=== PATIENT | male | born 1950 | race Caucasian/White ===

== ENCOUNTER → 2021-03-26 | Outpatient (CLI) | payer MEDICARE, OTHER | LOC: ORTHO 13:00 | PROVIDERS: ATTEND Orthopaedic Surgery | DX: M17.0 Bilateral primary osteoarthritis of knee (principal) ==

== ENCOUNTER → 2021-06-25 | Outpatient (CLI) | payer MEDICARE, OTHER ==
[~2021-06-25] MED LIST: BUDE10.2 IH; BUDE180A IH; CELE200C PO; CETI10TA17 PO; CHOL200059 PO; LISI10TA25 PO; MONT-40 PO; OMAL150S SQ; PSEU120T17 PO; ROSU10TA28 PO; RT-ALBUINH INH
--- NOTE | 2021-06-25 12:22 | Diagnostic Imaging Report ---
INDICATION: Degenerative joint disease of the right knee, preop. EXAMINATION: PA and lateral chest. FINDINGS: There are postop changes of the dorsal fusion of T12-L1. There are old healed rib fractures of the right lateral thoracic cage. Heart size and pulmonary vascularity are normal. Lungs are clear. There are no effusions or pneumothoraces. IMPRESSION: No acute abnormalities in the chest. Dictated by: Dictated on workstation # [id number]
--- NOTE | 2021-06-25 12:50 | Diagnostic Imaging Report ---
INDICATION: Right knee pain. AP, lateral, and oblique and sunrise views of the right knee are obtained. FINDINGS: There is advanced degenerative change of the medial compartment of the right knee with osteophyte formation and severe joint space narrowing and subchondral sclerosis. Lateral compartment appears preserved. There is mild patellofemoral spurring. There is no lytic or blastic lesion. IMPRESSION: Degenerative findings in the right knee, most severe in the medial compartment. No acute appearing abnormality. Dictated by: Dictated on workstation # [id number]
== END ==
LOC: ORTHO 08:53
PROVIDERS: ATTEND Orthopaedic Surgery
DX: Z01.818 Encounter for other preprocedural examination (principal); M17.11 Unilateral primary osteoarthritis, right knee
CPT/HCPCS: 71046; 73564

== ENCOUNTER → 2021-06-25 | Outpatient (CLI) | payer MEDICARE, OTHER ==
[2021-06-25 11:05] LABS: BASOPHILS # (AUTO) 0.1 10^3/uL (0.0-0.1); BASOPHILS % (AUTO) 1 % (0-10); EOSINOPHILS # (AUTO) 0.5 10^3/uL (0.0-0.3); EOSINOPHILS % (AUTO) 6 % (0-10); HEMATOCRIT 45 % (40-54); HEMOGLOBIN 14.8 g/dL (13.3-17.7); LYMPHOCYTES # (AUTO) 1.6 10^3/uL (1.0-4.0); LYMPHOCYTES % (AUTO) 20 % (12-44); MEAN CORPUSCULAR HEMOGLOBIN 31 pg (25-34); MEAN CORPUSCULAR HGB CONC 33 g/dL (32-36); MEAN CORPUSCULAR VOLUME 93 fL (80-99); MEAN PLATELET VOLUME 8.8 fL (9.0-12.2); MONOCYTES # (AUTO) 1.1 10^3/uL (0.0-1.0); MONOCYTES % (AUTO) 15 % (0-12); NEUTROPHILS # (AUTO) 4.5 10^3/uL (1.8-7.8); NEUTROPHILS % (AUTO) 58 % (42-75); PLATELET COUNT 243 10^3/uL (130-400); WHITE BLOOD COUNT 7.8 10^3/uL (4.3-11.0)
[2021-06-25 11:31] LABS: CALCIUM 9.7 MG/DL (8.5-10.1); CREATININE SERUM 0.78 MG/DL (0.60-1.30); POTASSIUM 4.2 MMOL/L (3.6-5.0)
[2021-06-25 11:42] LABS: INR 0.9 (0.8-1.4); PROTHROMBIN TIME PATIENT 12.4 SEC (12.2-14.7)
[2021-06-25 12:01] LABS: BILIRUBIN,URINE NEGATIVE (NEGATIVE); CLARITY,URINE CLEAR; COLOR,URINE YELLOW; GLUCOSE, URINE (UA) NEGATIVE (NEGATIVE); KETONES,URINE NEGATIVE (NEGATIVE); LEUKOCYTE ESTERASE ,URINE NEGATIVE (NEGATIVE); NITRITE,URINE NEGATIVE (NEGATIVE); PH,URINE 5.5 (5-9); PROTEIN,URINE NEGATIVE (NEGATIVE)
[2021-06-25 12:05] LABS: BACTERIA,URINE NEGATIVE /HPF
== END ==
LOC: CARD 10:40
PROVIDERS: ATTEND Orthopaedic Surgery
DX: Z01.89 Encounter for other specified special examinations (principal)
CPT/HCPCS: 36415; 80048; 81000; 85025; 85610; 93005

== ENCOUNTER 2021-07-01 09:41 | Outpatient (CLI) | payer MEDICARE, OTHER ==
[~2021-07-01] VITALS: Ht 170.2 cm; Wt 95.7 kg
[2021-07-01 09:45] VITALS: BP 157/83
[2021-07-01] MEDS ORDERED: PSEU120T17 PO (10:46)
[2021-07-01] MEDS ORDERED: CETI10TA17 PO (10:46)
[2021-07-01] MEDS ORDERED: CELE200C PO (10:46)
[2021-07-01] MEDS ORDERED: MONT-40 PO (10:46)
[2021-07-01] MEDS ORDERED: ROSU10TA28 PO (10:46)
[2021-07-01] MEDS ORDERED: LISI10TA25 PO (10:46)
[2021-07-01] MEDS ORDERED: BUDE10.2 IH (10:46)
[2021-07-01] MEDS ORDERED: BUDE180A IH (10:46)
[2021-07-01] MEDS ORDERED: CHOL200059 PO (10:46)
[2021-07-01] MEDS ORDERED: RT-ALBUINH INH (10:46)
[2021-07-01] MEDS ORDERED: OMAL150S SQ (10:46)
== END 2021-07-01 10:59 | disposition home or self-care (01) ==
LOC: PREOP 09:41
PROVIDERS: ATTEND Orthopaedic Surgery
DX: Z01.818 Encounter for other preprocedural examination (principal)
CPT/HCPCS: 87081

== ENCOUNTER 2021-07-08 06:22 | Inpatient (IN) | payer MEDICARE, OTHER ==
[~2021-07-08] VITALS: Ht 170 cm; Wt 95.7 kg
[2021-07-08] VITALS (11 sets, daily range): BP systolic 99–172; BP diastolic 61–94
[2021-07-08] MEDS ORDERED: fentaNYL INJ 100 MCG/2 ML AMP ONE (06:55)
[2021-07-08] MEDS ORDERED: MIDAZOLAM 2 MG/2 ML (VERSED) VIAL ONE (06:55)
[2021-07-08] MEDS ORDERED: LIDOCAINE PF 2% 5 ML (XYLOCAINE) VIAL ONE ×2 (06:56→08:43)
[2021-07-08] MEDS ORDERED: ROPIVACAINE 5MG/ML 30ML VIAL ONE (06:56)
[2021-07-08] MEDS ORDERED: ceFAZolin 2 GM IV Premixed 50 ML IV NR (07:00)
--- NOTE | 2021-07-08 07:17 | Progress Note-Pre Operative ---
Pre-Operative Progress Note H&P Reviewed The H&P was reviewed, patient examined and no changes noted. Date Seen by Provider: Jul 08, 2021 Time Seen by Provider: 07:15 Date H&P Reviewed: Jul 08, 2021 Time H&P Reviewed: 07:15 Pre-Operative Diagnosis: Right Knee Primary Osteoarthritis LOPEZ BUSH MD Jul 08, 2021 07:17
[2021-07-08] MEDS: LACTATED RINGERS 1,000 ML IV PRN ×4 (07:23→15:24)
[2021-07-08] MEDS ORDERED: SODIUM CHLORIDE 0.9% IRRIGATIO 150 ML, TRANEXAMIC ACID INJECTION 3,000 MG IR ONE ×2 (08:30)
[2021-07-08] MEDS ORDERED: SEVOFLURANE (ULTANE) 15 ML INHAL SOLN ONE (08:42)
[2021-07-08] MEDS ORDERED: ROCURONIUM 10 MG/ML 5 ML SYRINGE IV ONE (08:42)
[2021-07-08] MEDS ORDERED: proPOfol 200 MG/20 ML (DIPRIVAN) VIAL IV ONE (08:42)
[2021-07-08] MEDS ORDERED: ONDANSETRON 4 MG/2 ML (SDV) Z0FRAN ONE (08:43)
[2021-07-08] MEDS ORDERED: morphine INJ 10 MG/ML 1ML (SYR OR VIAL) ONE ×2 (09:39→10:48)
--- NOTE | 2021-07-08 10:42 | Operative Report - Ortho ---
Operative Report Surgeon (s)/[employer] (s) Surgeon LOPEZ BUSH MD [employer] n/a Pre-Operative Diagnosis Right Knee Primary Osteoarthritis Post-Operative Diagnosis same Operative Report Date of Procedure: Jul 08, 2021 Name of Procedure Performed: Right Total Knee Arthroplasty Description & Findings After obtaining informed consent and marking the patient in the preoperative holding area, the patient did receive IV antibiotics. Patient was taken to the operating room and anesthesia was induced. Surgical timeout was taken. The right lower extremity was prepped and draped in the usual sterile fashion. Incision was made and carried down to fascia. Arthrotomy was performed on the medial side of the patella. Patella was retracted laterally and knee was flexed. Found to have circumferential osteophtye around the distal femur as well as exposed bone in the medial compartment. Hole was made in the distal femur for the intramedullary distal femoral cutting guide. Resection was made then the femur was sized as a 6. 4-in-1 block for a size [address]. Anterior cut was made and there was no notch. Posterior cut was made followed by the chamfers. Box cut was performed. Lug holes were drilled. Attention was turned to the tibial side, extramedullary tibial guide was put into place and aligned with the tibial crest. It was set to take 2 mm off of the affected medial side. Drop jon was used to confirm alignment. Resection was made and was parallel to the joint line. Tibial bone block was removed. Lamina blade balancer was put into place and the menisci and posterior osteophytes were removed. The knee was trialed with a size 6 femur and a size 6 tibia with a 9 mm poly trial. It was found to come out to full extension and flexed beyond 120 degrees. It was stable to varus and valgus stress throughout its range of motion. It was noted that the size 6 did have medial overhang and it was decided to size down to a 5. This was accepted. Knee was brought out into extension and the patella was prepared for an inset patellar button. Patellar trial was placed and this tracked well through the groove of the trial femur. Trial implants were removed. Tibial trial was pinned and punched. The cut bone surfaces were lavaged with pulsatile normal saline. Implants were opened and assembled on the back table. Cement was mixed. Cement was applied to the cut bone surface as well as the implant surface. A size 5 tibial component was impacted into placed and excess cement was removed using a [place]. A size 6 femoral component was impacted into place and excess cement was removed using a [place]. Tibial tray was lavaged with saline. A 9 mm thick polyethylene component was locked into placed and the locking mechanism was checked. Knee was brought into extension. Patellar surface was irrigated, dried, and then cement was applied. Patellar component was clamped into place and excess cement was removed using the [place]. The knee was irrigated with normal saline. Irrigation was removed and tranexamic acid was placed. Once the cement had set, the knee was once again trialed; found to come to full extension, flexed beyond 120 degrees, and was stable to varus and valgus stress. Further tranexamic acid was applied for hemostasis. Tourniquet was dropped and electrocautery was used for further hemostasis. Fascial layer was closed with # 1 Ethibond. The subcutaneous layer was closed with 2-0 Vicryl. The skin was closed with a running subcuticular 3-0 V-loc. Wound was dressed with mastisol, steri-strips, xeroform, 4x4s, ABD, webril, and ANNMARIE wrap. Patient tolerated the procedure well and was stable to the recovery room. Anesthesia Type General plus regional Estimated Blood Loss 150 mL Specimen(s) collected/removed none LOPEZ BUSH MD Jul 08, 2021 10:42
[2021-07-08] MEDS ORDERED: BISACODYL 5 MG (DULCOLAX) TABLET PO PRN (10:45)
[2021-07-08] MEDS ORDERED: morphine INJ 4 MG/ML 1 ML (VIAL/SYRINGE) IVP PRN (10:45)
[2021-07-08] MEDS ORDERED: ACETAMINOPHEN 500 MG TAB (TYLENOL) PO PRN (10:45)
[2021-07-08] MEDS ORDERED: ONDANSETRON 4 MG/2 ML (SDV) Z0FRAN IVP PRN (10:45)
[2021-07-08] MEDS ORDERED: morphine INJ 10 MG/ML 1ML (SYR OR VIAL) IVP ONE (10:45)
[2021-07-08] MEDS ORDERED: ONDANSETRON 4 MG/2 ML (SDV) Z0FRAN IV PRN (10:45)
[2021-07-08] MEDS ORDERED: MEPERIDINE (DEMEROL) INJ 50 MG/ML IVP ONE (10:45)
[2021-07-08] MEDS ORDERED: MILK OF MAGNESIA 400 MG/5 ML 30 ML UDC PO PRN (10:45)
[2021-07-08] MEDS ORDERED: fentaNYL INJ 100 MCG/2 ML AMP IVP ONE (10:45)
--- NOTE | 2021-07-08 12:06 | Diagnostic Imaging Report ---
INDICATION: Right knee replacement surgery. TIME OF EXAM: 10:59 AM 2 views of the right knee demonstrate postoperative changes of total knee arthroplasty. Prosthetic elements are in good position. No fracture or loosening is identified. IMPRESSION: Satisfactory postop appearance to the right knee. Dictated by: Dictated on workstation # [id number]
--- NOTE | 2021-07-08 14:13 | Physical Therapy Evaluation ---
PT Evaluation-General Medical Diagnosis Admission Date Jul 08, 2021 at 06:22 Medical Diagnosis: right TKR Onset Date: Jul 08, 2021 Therapy Diagnosis Therapy Diagnosis: debility/weakness Weight Bear Status Right Lower Extremity: Right Weight Bearing/Tolerated Left Lower Extremity: Left Full Weight Bearing Referral Physician: Kareem Reason for Referral: Evaluation/Treatment Medical History Additional Medical History Covid (+) Current History s/p elective right TKR Reviewed History: Yes Social History Home: Single Level Prior Prior Level of Function SCALE: Activities may be completed with or without assistive devices. 8-Cfpknqdgys-vjclfnr completes the activity by him/herself with no assistance from a helper. 5-Set-up or Clean-up Assistance-helper sets up or cleans up; patient completes activity. [place] assists only prior to or following the activity. 4-Supervision or Touching Assistance-helper provides verbal cues and/or touching/steadying and/or contact guard assistance as patient completes activity . Assistance may be provided throughout the activity or intermittently. 3-Partial/Moderate Assistance-helper does LESS THAN HALF the effort. [place] lifts, holds or supports trunk or limbs, but provides less than half the effort. 2-Substantial/Maximal Assistance-helper does MORE THAN HALF the effort. [place] lifts or holds trunk or limbs and provides more than half the effort. 8-Mwymqfqee-tuetvv does ALL the effort. Patient does none of the effort to complete the activity. Or, the assistance of 2 or more helpers is required for the patient to complete the activity. If activity was not attempted, code reason: 7-Patient Refused. 9-Not Applicable-not attempted and the patient did not perform the activity before the current illness, exacerbation or injury. 10-Not Attempted due to Environmental Limitations-(lack of equipment, weather restraints, etc.). 88-Not Attempted due to Medical Conditions or Safety Concerns. Bed Mobility: 6 Transfers (B,C,W/C): 6 Gait: 6 Stairs: 6 Indoor Mobility (Ambulation): Independent Stairs: Independent Prior Devices Use: None PT Evaluation-Current Subjective Patient agrees for PT to place CPM on right LE 0-50 degrees. Objective Patient Orientation: Normal For Age Attachments: Oxygen ROM/Strength ROM Lower Extremities right knee CPM 0-50 degrees Sensory Vision: Wears Glasses Hearing: Functional Treatment CPM 0-50 degrees right LE Assessment/Needs Eval in progress. CPM in place right LE. PT to complete evaluation in a.m. Rehab Potential: Fair PT Care Home Goals Research Professional Goals PT Care Home Goals Time Frame: Jul 20, 2021 Roll Left & Right (QC): 6 Sit to Lying (QC): 6 Lying-Sitting on Side/Bed(QC): 6 Sit to Stand (QC): 6 Chair/Yeo-xh-Avggb Xfer(QC): 6 Toilet Transfer (QC): 6 Walk 10 feet (QC): 6 Walk 50ft with 2 Turns (QC): 6 Walk 150 ft (QC): 6 PT Plan Problem List Problem List: Activity Tolerance, Functional Strength, Balance, Gait, Transfer, Bed Mobility, ROM Treatment/Plan Treatment Plan: Continue Plan of Care Treatment Plan: Bed Mobility, Education, Functional Activity Dennis, Functional Strength, Gait, Safety, Therapeutic Exercise, Transfers Treatment Duration: Jul 20, 2021 Frequency: 11 times per week Estimated Hrs Per Day: .5 hour per day Patient and/or Family Agrees t: Yes Time/GCodes Time In: 1330 Time Out: 1340 Total Billed Treatment Time: 10 Total Billed Treatment 1 visit CPM/PADS 10min THELMA WOLFE PT Jul 08, 2021 14:13
[2021-07-08] MEDS: ceFAZolin 2 GM IV Premixed 50 ML IV SCH (15:24)
[2021-07-08] MEDS ORDERED: PSEUDOEPHEDRINE HCL 30 MG (SUDAFED) TAB PO SCH (17:00)
[2021-07-08] MEDS: ASPIRIN E.C. 81 MG (ECOTRIN) TAB PO SCH (18:27)
[2021-07-08] MEDS: PSEUDOEPHEDRINE HCL 30 MG (SUDAFED) TAB PO SCH (18:27)
[2021-07-08] MEDS: FLUTICASONE 200 MCG IH SCH (18:56)
[2021-07-08] MEDS: RT--FLUTICASONE/SALMETEROL 232-14 (AIRDUO RespiCLICK) IH SCH (18:57)
[2021-07-08] MEDS: ROSUVASTATIN 10 MG (CRESTOR) TABLET PO SCH (20:32)
[2021-07-08] MEDS: lisINopril 10 MG (PRINIVIL) TABLET PO SCH (20:32)
[2021-07-08] MEDS: MONTELUKAST 10 MG (SINGULAIR) TAB PO SCH (20:32)
[2021-07-08] MEDS: DOCUSATE SODIUM 100 MG (COLACE) CAP PO SCH (20:32)
[2021-07-08] MEDS ORDERED: PSEUDOEPHEDRINE HCL 120 MG PO SCH (21:00)
[2021-07-08] MEDS ORDERED: NON-FORMULARY MEDICATION 1 EA EA (Budesonide/Formoterol Fumarate (Symbicort 160-4.5 Mcg In IH SCH (21:00)
[2021-07-08] MEDS ORDERED: MULTIVIT W/MINERALS TAB (THERAGRAN M) ONE (23:58)
[2021-07-09] VITALS (7 sets, daily range): BP systolic 115–184; BP diastolic 57–90
[2021-07-09] MEDS: PSEUDOEPHEDRINE HCL 30 MG (SUDAFED) TAB PO SCH ×5 (00:01→23:54)
[2021-07-09] MEDS: MULTIVIT W/MINERALS TAB (THERAGRAN M) PO SCH (00:01)
[2021-07-09] MEDS: ceFAZolin 2 GM IV Premixed 50 ML IV SCH (00:01)
--- NOTE | 2021-07-09 07:09 | Anesthesia-General Post-Op ---
General Patient Condition Mental Status/LOC: Same as Preop Cardiovascular: Satisfactory Nausea/Vomiting: Absent Respiratory: Satisfactory Pain: Controlled Complications: Absent Post Op Complications Complications None Follow Up Care/Instructions Patient Instructions None needed. Anesthesia/Patient Condition Patient Condition Patient is doing well, no complaints, stable vital signs, no apparent adverse anesthesia problems. No complications reported per nursing. D/C home per [facility] Criteria: Yes LAYO CONWAY CRNA Jul 09, 2021 07:09
[2021-07-09 07:41] LABS: HEMOGLOBIN 12.9 g/dL (13.3-17.7)
[2021-07-09] MEDS: RT--FLUTICASONE/SALMETEROL 232-14 (AIRDUO RespiCLICK) IH SCH ×2 (07:41→20:27)
--- NOTE | 2021-07-09 08:26 | Progress Note - Ortho ---
Progress Note Subjective Date of Exam 07/09/21 Chief Complaint POD #1 R TKA HPI/Events since last exam doing well, pain controlled, has tolerated CPM Review of Systems - Allergies: Coded Allergies: No Known Drug Allergies (Unverified , 07/01/21) Home Meds Reported Medications Omalizumab (Xolair) 150 Mg/1 Ml Syringe, 150 MG SQ MONTHLY, EA 07/01/21 Cholecalciferol (Vitamin D3) (Vitamin D3) 50 Mcg Tablet, 50 MCG PO DAILY, TAB 07/01/21 Albuterol Sulfate (VENTOLIN HFA) 1 Puff Puff, 2 PUFF INH Q4H PRN for WHEEZING, EA 07/01/21 Budesonide/Formoterol Fumarate (Symbicort 160-4.5 Mcg Inhaler) 10.2 Gm Hfa.aer.ad, 2 PUFF IH BID, EA LAST FILLED 08-17-2020 #2/60 DAY SUPPLY 07/01/21 Rosuvastatin Calcium (Rosuvastatin Calcium) 10 Mg Tablet, 10 MG PO HS, TAB 07/01/21 Budesonide (Pulmicort Flexhaler) 180 Mcg Aer.pow.ba, 2 PUFF IH HS, GM LAST FILLED 05-20-2021 #1 07/01/21 Pseudoephedrine HCl (Sudafed 12 Hour) 120 Mg Tablet.er, 120 MG PO BID, TAB 07/01/21 Montelukast Sodium (Montelukast Sodium) 10 Mg Tablet, 10 MG PO HS, TAB 07/01/21 Lisinopril (Lisinopril) 10 Mg Tablet, 10 MG PO HS, TAB 07/01/21 Cetirizine HCl (Cetirizine HCl) 10 Mg Tablet, 10 MG PO DAILY, TAB 07/01/21 Celecoxib (Celebrex) 200 Mg Capsule, 200 MG PO DAILY, CAP 07/01/21 Objective Exam R Knee: Dressing C/D/I, +DF of ankle, no s/s of DVT Vital Signs Vital Signs Date Time Temp Pulse Resp B/P (MAP) Pulse Ox O2 Delivery O2 Flow Rate FiO2 07/09/21 07:51 37.4 96 18 170/71 (104) 94 Nasal Cannula 2.50 07/09/21 07:41 91 Room Air 07/09/21 03:34 36.8 74 18 168/80 (109) 95 Nasal Cannula 2.50 07/09/21 00:15 37.2 83 19 184/90 (121) 94 Nasal Cannula 2.50 07/08/21 21:16 Nasal Cannula 2.00 07/08/21 20:00 36.8 79 20 172/79 (110) 93 Nasal Cannula 2.50 07/08/21 19:01 94 Nasal Cannula 2.50 07/08/21 18:57 94 Nasal Cannula 2.00 07/08/21 16:00 37.0 77 22 169/85 (113) 94 Nasal Cannula 2.50 07/08/21 12:00 36.3 85 18 156/73 (100) 99 Nasal Cannula 2.00 07/08/21 11:25 Nasal Cannula 2 07/08/21 11:25 36.4 18 142/88 (106) 94 Nasal Cannula 2 07/08/21 11:25 99 Nasal Cannula 2.00 07/08/21 11:20 18 140/94 (109) 94 Nasal Cannula 2 07/08/21 11:14 Nasal Cannula 2 07/08/21 11:12 Room Air 07/08/21 11:10 18 142/82 (102) 93 OxyMask 2 07/08/21 11:09 OxyMask 2 07/08/21 11:04 OxyMask 3 07/08/21 11:00 OxyMask 3 07/08/21 11:00 18 147/78 (101) 94 OxyMask 3 07/08/21 10:50 18 128/75 (92) 96 OxyMask 6 07/08/21 10:45 OxyMask 6 07/08/21 10:42 36.2 20 121/80 (94) 94 OxyMask 10 07/08/21 10:37 15 136/84 (101) 96 OxyMask 10 07/08/21 10:27 10 07/08/21 10:27 14 99/61 (74) 100 10 I & O 07/09/21 07:00 Intake Total 4910 ml Output Total 1850 ml Balance 3060 ml Lab Results Laboratory Tests 07/09/21 07:22: Hemoglobin 12.9L, Hematocrit 40 Imaging 2 views of right knee dated 07/08/21 were reviewed from PACS and demonstrated total knee arthroplasty with components in good position, no complications noted Assessment and Plan Assessment s/p R TKA Problem List s/p R TKA Plan PT/OT DVT Prophylaxis Plan for home with home health on Patient is vaccinated and boosted and remains asymptomatic but did have a positive COVID test on 07/05; continue precautions Final Diagonsis s/p R TKA Level of the visit: Level 3 (postop global) LOPEZ BUSH MD Jul 09, 2021 08:26
[2021-07-09] MEDS ORDERED: NON-FORMULARY MEDICATION 1 EA EA (Celecoxib (Celebrex) 200 MG) PO SCH (09:00)
[2021-07-09] MEDS ORDERED: BUDESONIDE IH SCH (09:00)
[2021-07-09] MEDS ORDERED: NON-FORMULARY MEDICATION 1 EA EA (Cetirizine HCl 10 MG) PO SCH (09:00)
[2021-07-09] MEDS ORDERED: NON-FORMULARY MEDICATION 1 EA EA (Cholecalciferol (Vitamin D3) (Vitamin D3) 50 MCG) PO SCH (09:00)
[2021-07-09] MEDS ORDERED: lisINopril 10 MG (PRINIVIL) TABLET PO SCH (09:00)
--- NOTE | 2021-07-09 09:36 | Physical Therapy Evaluation ---
PT Evaluation-General Medical Diagnosis Admission Date Jul 08, 2021 at 06:22 Medical Diagnosis: right TKR Onset Date: Jul 08, 2021 Therapy Diagnosis Therapy Diagnosis: debility/weakness Precautions Precautions/Isolations: Airborne Isolation, Fall Prevention, Standard Precautions Weight Bear Status Right Lower Extremity: Right Weight Bearing/Tolerated Left Lower Extremity: Left Full Weight Bearing Referral Physician: Kareem Reason for Referral: Evaluation/Treatment Medical History Additional Medical History Covid (+) Current History s/p elective right TKR Reviewed History: Yes Social History Home: Single Level Current Living Status: Spouse Entry Into Home: Stairs With Railing PT Steps Into Home: 2 Prior Prior Level of Function SCALE: Activities may be completed with or without assistive devices. 1-Wdmufvhlyo-jfdhwmf completes the activity by him/herself with no assistance from a helper. 5-Set-up or Clean-up Assistance-helper sets up or cleans up; patient completes activity. [place] assists only prior to or following the activity. 4-Supervision or Touching Assistance-helper provides verbal cues and/or touching/steadying and/or contact guard assistance as patient completes activity. Assistance may be provided throughout the activity or intermittently. 3-Partial/Moderate Assistance-helper does LESS THAN HALF the effort. [place] lifts, holds or supports trunk or limbs, but provides less than half the effort. 2-Substantial/Maximal Assistance-helper does MORE THAN HALF the effort. [place] lifts or holds trunk or limbs and provides more than half the effort. 7-Oliunupny-vrqylj does ALL the effort. Patient does none of the effort to complete the activity. Or, the assistance of 2 or more helpers is required for the patient to complete the activity. If activity was not attempted, code reason: 7-Patient Refused. 9-Not Applicable-not attempted and the patient did not perform the activity before the current illness, exacerbation or injury. 10-Not Attempted due to Environmental Limitations-(lack of equipment, weather restraints, etc.). 88-Not Attempted due to Medical Conditions or Safety Concerns. Bed Mobility: 6 Transfers (B,C,W/C): 6 Gait: 6 Stairs: 6 Indoor Mobility (Ambulation): Independent Stairs: Independent Prior Devices Use: None PT Evaluation-Current Subjective Patient agrees to PT. Pain Numeric Pain Scale: 5-Moderate Pain Location: Right Location Body Site: Knee Pain Description: Acute Objective Patient Orientation: Normal For Age Attachments: Oxygen, [place] Catheter, IV ROM/Strength ROM Lower Extremities right knee flexion 10-60 degrees AROM/left LE WFL Strength Lower Extremities right LE 3/5 grossly/left LE 4/5 grossly Integumentary/Posture Integumentary refer to nursing notes Bladder Incontinence: [place] Cath Posture WFL Neuromuscular (Tone, Coordination, Reflexes) grossly intact Sensory Vision: Wears Glasses Hearing: Functional Transfers Lying to Sitting/Side of Bed(Q: 6 Sit to Stand (QC): 4 Chair/Pbg-cd-Isozq Xfer(QC): 4 Gait Does the Patient Walk?: Yes Mode of Locomotion: Walk Anticipated Mode of Locomotion: Walk Walk 10 feet (QC): 4 Walk 50 ft with 2 Turns(QC): 4 Walk 150 ft (QC): 4 Distance: 150' in room Gait Assistive Device: FWW Comments/Gait Description slow, antalgic, functional gait Wheelchair Training Does the Pt Use a Wheelchair?: No Balance Sitting Static: Normal Sitting Dynamic: Normal Standing Static: Normal Standing Dynamic: Normal Treatment bilateral LE exercises 10 reps each AP, SLR, HS, QS, LAQ Assessment/Needs 70 y.o. male, will benefit from skilled PT to address functional strength and mobility to improve current LOF to safely return to home at maximum LOF. Rehab Potential: Good PT Longterm Goals Tool Radial Drill Press Set Up Operator Goals PT Longterm Goals Time Frame: Jul 20, 2021 Roll Left & Right (QC): 6 Sit to Lying (QC): 6 Lying-Sitting on Side/Bed(QC): 6 Sit to Stand (QC): 6 Chair/Fzm-ag-Ztkca Xfer(QC): 6 Toilet Transfer (QC): 6 Walk 10 feet (QC): 6 Walk 50ft with 2 Turns (QC): 6 Walk 150 ft (QC): 6 PT Plan Treatment/Plan Treatment Plan: Continue Plan of Care Treatment Plan: Bed Mobility, Education, Functional Activity Dennis, Functional Strength, Gait, Safety, Therapeutic Exercise, Transfers Treatment Duration: Jul 20, 2021 Frequency: 11 times per week Estimated Hrs Per Day: .5 hour per day Patient and/or Family Agrees t: Yes Time/GCodes Time In: 850 Time Out: 909 Total Billed Treatment Time: 19 [facility] Jul 09, 2021 09:36
[2021-07-09] MEDS: CELECOXIB 100 MG (CeleBREX) CAP PO SCH (09:37)
[2021-07-09] MEDS: VITAMIN D3 25 MCG (1,000 UNITS) TABLET PO SCH (09:37)
[2021-07-09] MEDS: LORATADINE (CLARITIN) 10 MG TAB PO SCH (09:37)
[2021-07-09] MEDS: DOCUSATE SODIUM 100 MG (COLACE) CAP PO SCH ×2 (09:37→20:24)
[2021-07-09] MEDS: ASPIRIN E.C. 81 MG (ECOTRIN) TAB PO SCH ×2 (09:38→17:33)
--- NOTE | 2021-07-09 14:16 | Physical Therapy Daily Note ---
PT Daily Note-Current Subjective Patient agrees to PT. No c/o. Pain Numeric Pain Scale: 5-Moderate Pain Location: Right Location Body Site: Knee Pain Description: Acute Mental Status Patient Orientation: Normal For Age Attachments: [place] Transfers SCALE: Activities may be completed with or without assistive devices. 9-Afhzkliejk-mybtggx completes the activity by him/herself with no assistance from a helper. 5-Set-up or Clean-up Assistance-helper sets up or cleans up; patient completes activity. [place] assists only prior to or following the activity. 4-Supervision or Touching Assistance-helper provides verbal cues and/or touching/steadying and/or contact guard assistance as patient completes activity. Assistance may be provided throughout the activity or intermittently. 3-Partial/Moderate Assistance-helper does LESS THAN HALF the effort. [place] lifts, holds or supports trunk or limbs, but provides less than half the effort. 2-Substantial/Maximal Assistance-helper does MORE THAN HALF the effort. [place] lifts or holds trunk or limbs and provides more than half the effort. 6-Jyyeazcss-zesqzq does ALL the effort. Patient does none of the effort to complete the activity. Or, the assistance of 2 or more helpers is required for the patient to complete the activity. If activity was not attempted, code reason: 7-Patient Refused. 9-Not Applicable-not attempted and the patient did not perform the activity before the current illness, exacerbation or injury. 10-Not Attempted due to Environmental Limitations-(lack of equipment, weather restraints, etc.). 88-Not Attempted due to Medical Conditions or Safety Concerns. Sit to Stand (QC): 5 Chair/Vde-bb-Chvts Xfer(QC): 6 Weight Bearing Right Lower Extremity: Right Weight Bearing/Tolerated Left Lower Extremity: Left Full Weight Bearing Gait Training Does the Patient Walk?: Yes Distance: 150' Walk 10 feet (QC): 5 Walk 50 ft with 2 Turns(QC): 5 Walk 150 ft (QC): 5 Gait Assistive Device: FWW slow, step to gait sequence Exercises Supine Ex: Ankle pumps, Quad Set, Heel Slides, Straight leg raise Supine Reps: 15 Seated Therapy Exercises: Long arc quads Seated Reps: 15 Assessment Current Status: Excellent Progress Patient progressing with treatment plan. AROM right knee in sit 10-90 degrees. Continue to increase activity. PT Fpc Goals Fpc Goals PT Fpc Goals Time Frame: Jul 20, 2021 Roll Left & Right (QC): 6 Sit to Lying (QC): 6 Lying-Sitting on Side/Bed(QC): 6 Sit to Stand (QC): 6 Chair/Ndz-to-Uljen Xfer(QC): 6 Toilet Transfer (QC): 6 Walk 10 feet (QC): 6 Walk 50ft with 2 Turns (QC): 6 Walk 150 ft (QC): 6 PT Plan Treatment/Plan Treatment Plan: Continue Plan of Care Treatment Plan: Bed Mobility, Education, Functional Activity Dennis, Functional Strength, Gait, Safety, Therapeutic Exercise, Transfers Treatment Duration: Jul 20, 2021 Frequency: 11 times per week Estimated Hrs Per Day: .5 hour per day Patient and/or Family Agrees t: Yes Time/GCodes Time In: 1300 Time Out: 1323 Total Billed Treatment Time: 23 Total Billed Treatment 1 visit EX 13 min GT 10 min THELMA WOLFE PT Jul 09, 2021 14:16
--- NOTE | 2021-07-09 14:35 | Occupational Therapy Eval ---
OT Evaluation-General/PLF Medical Diagnosis Admission Date Jul 08, 2021 at 06:22 Medical Diagnosis: right TKR Onset Date: Jul 08, 2021 Therapy Diagnosis Therapy Diagnosis: R TKR Precautions Precautions/Isolations: Airborne Isolation, Fall Prevention, Standard Precautions Weight Bear Status Weight Bearing Restriction: Weight Bearing/Tolerated Location Restriction: R LE Referral Physician: Kareem Referral Reason: Evaluation/Treatment Medical History Current History S/P R TKR post op day 1. Pt reports living in a single story home with his . Indep with adls, completes iadls. No AD used prior to hospitalization. Pt tested positive for COVID on 07/05/21 Reviewed History: Yes Social History Home: Single Level Current Living Status: Spouse Entry Into Home: Stairs With Railing Steps Into Home: 2 ADL-Prior Level of Function SCALE: Activities may be completed with or without assistive devices. 6-Augtocgagv-zahcnzw completes the activity by him/herself with no assistance from a helper. 5-Set-up or Clean-up Assistance-helper sets up or cleans up; patient completes activity. [place] assists only prior to or following the activity. 4-Supervision or Touching Assistance-helper provides verbal cues and/or touching/steadying and/or contact guard assistance as patient completes activity. Assistance may be provided throughout the activity or intermittently. 3-Partial/Moderate Assistance-helper does LESS THAN HALF the effort. [place] lifts, holds or supports trunk or limbs, but provides less than half the effort. 2-Substantial/Maximal Assistance-helper does MORE THAN HALF the effort. [place] lifts or holds trunk or limbs and provides more than half the effort. 3-Qelmjyqvw-dbvqex does ALL the effort. Patient does none of the effort to complete the activity. Or, the assistance of 2 or more helpers is required for the patient to complete the activity. If activity was not attempted, code reason: 7-Patient Refused. 9-Not Applicable-not attempted and the patient did not perform the activity before the current illness, exacerbation or injury. 10-Not Attempted due to Environmental Limitations-(lack of equipment, weather restraints, etc.). 88-Not Attempted due to Medical Conditions or Safety Concerns. Self Care: Independent Functional Cognition: Independent DME/Equipment: Bath Chair, Grab Bars, Shower, Tub/Shower Drive Self: Yes OT Current Status Subjective Reports pain as 5/10 in RLE, ice applied at end of session Appearance Pt left supine in bed, all needs within reach at OT departure Mental Status/Objective Patient Orientation: Person, Place, Situation Attachments: IV Current Glasses/Contacts: Yes Hearing Aids: No Dentures/Partials: No Hand Dominance: Right Upper Extremity ROM WNL Upper Extremity Strength WFL ADL-Treatment On/Off Footwear (QC): 3 Toileting Hygiene (QC): 4 Supine<>sit: SBA. Extra effort exhibited when donning bilatera socks. Min a needed to initiate R sock over toes. Anticipate improved performance once pain subsides and knee rom improves. Sit<>stand: CGA. Pt ambulated to/from bathroom with use of walker and CGA. He was able to lower to toilet with use of grab bar and CGA. Cues to keep RLE extended when lowering. Steadying assist required when performing clothing management. Good balance notable when standing at sink for hand hygiene. Education OT Patient Education: Correct positioning, Modified ADL techniques, Purpose of tx/functional activities, Reviewed precautions, Safety issues, Transfer techniques Teaching Recipient: Patient Teaching Methods: Demonstration, Discussion Response to Teaching: Verbalize Understanding, Return Demonstration OT Long-Term Goals Long-Term Goals Time Frame: Jul 13, 2021 Eating (QC): 6 Oral Hygiene (QC): 6 Toileting Hygiene (QC): 5 Upper Body Dressing (QC): 5 Lower Body Dressing (QC): 4 1=Demonstrate adherence to instructed precautions during ADL tasks. 2=Patient will verbalize/demonstrate understanding of assistive devices/modifications for ADL. 3=Patient will improve strength/tolerance for activity to enable patient to perform ADL's. OT Education/Plan Problem List/Assessment Assessment: Decreased Activ Tolerance, Impaired Funct Balance, Impaired Self- Care Skills Discharge Recommendations Plan/Recommendations: Continue POC Therapy Discharge Recommendati: Home & Family Target Placement Anticipate home with family support pending progress. Treatment Plan/Plan of Care Treatment,Training & Education: Yes Patient would benefit from OT for education, treatment and training to promote independence in ADL's, mobility, safety and/or upper extremity function for ADL's. Plan of Care: ADL Retraining, Functional Mobility, UE Funct Exercise/Act Treatment Duration: Jul 13, 2021 Frequency: 5 times per week Estimated Hrs Per Day: .25 hour per day Rehab Potential: Good Time/GCodes Start Time: 13:41 Stop Time: 13:56 Total Time Billed (hr/min): 15 Billed Treatment Time 1, Kelly Dow OT Jul 09, 2021 14:35
[2021-07-09] MEDS: MONTELUKAST 10 MG (SINGULAIR) TAB PO SCH (20:25)
[2021-07-09] MEDS: lisINopril 10 MG (PRINIVIL) TABLET PO SCH (20:25)
[2021-07-09] MEDS: ROSUVASTATIN 10 MG (CRESTOR) TABLET PO SCH (20:25)
[2021-07-09] MEDS: FLUTICASONE 200 MCG IH SCH (20:26)
[2021-07-10] VITALS (7 sets, daily range): BP systolic 115–134; BP diastolic 57–71
[2021-07-10] MEDS: MULTIVIT W/MINERALS TAB (THERAGRAN M) PO SCH (06:03)
[2021-07-10] MEDS: PSEUDOEPHEDRINE HCL 30 MG (SUDAFED) TAB PO SCH ×4 (06:03→23:26)
[2021-07-10 06:33] LABS: HEMOGLOBIN 12.4 g/dL (13.3-17.7)
--- NOTE | 2021-07-10 09:42 | Physical Therapy Daily Note ---
PT Daily Note-Current Subjective Patient in recliner pre tx, agrees to PT, has no pain at rest but states has 5/10 pain with activity. Appearance Patient in recliner post tx with nurse call, phone, tray, all needs met. Mental Status Patient Orientation: Person, Place, Situation Transfers SCALE: Activities may be completed with or without assistive devices. 4-Noquwutiyq-ongfxtz completes the activity by him/herself with no assistance from a helper. 5-Set-up or Clean-up Assistance-helper sets up or cleans up; patient completes activity. [place] assists only prior to or following the activity. 4-Supervision or Touching Assistance-helper provides verbal cues and/or touching/steadying and/or contact guard assistance as patient completes activity. Assistance may be provided throughout the activity or intermittently. 3-Partial/Moderate Assistance-helper does LESS THAN HALF the effort. [place] lifts, holds or supports trunk or limbs, but provides less than half the effort. 2-Substantial/Maximal Assistance-helper does MORE THAN HALF the effort. [place] lifts or holds trunk or limbs and provides more than half the effort. 6-Tnwtvuhfw-wlqiof does ALL the effort. Patient does none of the effort to complete the activity. Or, the assistance of 2 or more helpers is required for the patient to complete the activity. If activity was not attempted, code reason: 7-Patient Refused. 9-Not Applicable-not attempted and the patient did not perform the activity before the current illness, exacerbation or injury. 10-Not Attempted due to Environmental Limitations-(lack of equipment, weather restraints, etc.). 88-Not Attempted due to Medical Conditions or Safety Concerns. Sit to Stand (QC): 6 Chair/Qqz-fw-Fumvm Xfer(QC): 6 Weight Bearing Right Lower Extremity: Right Weight Bearing/Tolerated Left Lower Extremity: Left Full Weight Bearing Gait Training Distance: 150' Walk 10 feet (QC): 6 Walk 50 ft with 2 Turns(QC): 6 Walk 150 ft (QC): 6 Gait Assistive Device: FWW slow but steady ambulation, patient states that about 150' is about all he can do for now, slightly flexed right knee with ambulation but good step through Exercises Seated Therapy Exercises: Ankle pumps, Long arc quads, Hamstring Curls Seated Reps: 20 Treatments trannsfers, ambulation, LE strengthening Assessment Current Status: Fair Progress good progress, independent with ambulation PT Half-Way Goals Half-Way Goals PT Half-Way Goals Time Frame: Jul 20, 2021 Roll Left & Right (QC): 6 Sit to Lying (QC): 6 Lying-Sitting on Side/Bed(QC): 6 Sit to Stand (QC): 6 Chair/Skm-wi-Lbyje Xfer(QC): 6 Toilet Transfer (QC): 6 Walk 10 feet (QC): 6 Walk 50ft with 2 Turns (QC): 6 Walk 150 ft (QC): 6 PT Plan Problem List Problem List: Activity Tolerance, Functional Strength, Safety, Balance, Gait, Transfer, ROM Treatment/Plan Treatment Plan: Continue Plan of Care Treatment Plan: Bed Mobility, Education, Functional Activity Dennis, Functional Strength, Gait, Safety, Therapeutic Exercise, Transfers Treatment Duration: Jul 20, 2021 Frequency: 11 times per week Estimated Hrs Per Day: .5 hour per day Patient and/or Family Agrees t: Yes Safety Risks/Education Patient Education: Gait Training, Transfer Techniques, Correct Positioning, Safety Issues Teaching Recipient: Patient Teaching Methods: Demonstration, Discussion Response to Teaching: Reinforcement Needed Time/GCodes Time In: 910 Time Out: 922 Total Billed Treatment Time: 12 Total Billed Treatment 1 visit FA DOMINIQUE PALACIO PT Jul 10, 2021 09:42
[2021-07-10] MEDS: CELECOXIB 100 MG (CeleBREX) CAP PO SCH (10:09)
[2021-07-10] MEDS: DOCUSATE SODIUM 100 MG (COLACE) CAP PO SCH ×2 (10:09→21:01)
[2021-07-10] MEDS: ASPIRIN E.C. 81 MG (ECOTRIN) TAB PO SCH ×2 (10:09→17:37)
[2021-07-10] MEDS: LORATADINE (CLARITIN) 10 MG TAB PO SCH (10:09)
[2021-07-10] MEDS: VITAMIN D3 25 MCG (1,000 UNITS) TABLET PO SCH (10:09)
--- NOTE | 2021-07-10 10:46 | Progress Note - Ortho ---
Progress Note Subjective Date of Exam 07/10/21 Chief Complaint Ortho POD #2 R TKA HPI/Events since last exam Doing well, remains asymptomatic from COVID standpoint, making progress with therapy, pain controlled Review of Systems - Allergies: Coded Allergies: No Known Drug Allergies (Unverified , 07/01/21) Home Meds Reported Medications Omalizumab (Xolair) 150 Mg/1 Ml Syringe, 150 MG SQ MONTHLY, EA 07/01/21 Cholecalciferol (Vitamin D3) (Vitamin D3) 50 Mcg Tablet, 50 MCG PO DAILY, TAB 07/01/21 Albuterol Sulfate (VENTOLIN HFA) 1 Puff Puff, 2 PUFF INH Q4H PRN for WHEEZING, EA 07/01/21 Budesonide/Formoterol Fumarate (Symbicort 160-4.5 Mcg Inhaler) 10.2 Gm Hfa.aer.ad, 2 PUFF IH BID, EA LAST FILLED 08-17-2020 #2/60 DAY SUPPLY 07/01/21 Rosuvastatin Calcium (Rosuvastatin Calcium) 10 Mg Tablet, 10 MG PO HS, TAB 07/01/21 Budesonide (Pulmicort Flexhaler) 180 Mcg Aer.pow.ba, 2 PUFF IH HS, GM LAST FILLED 05-20-2021 #1 07/01/21 Pseudoephedrine HCl (Sudafed 12 Hour) 120 Mg Tablet.er, 120 MG PO BID, TAB 07/01/21 Montelukast Sodium (Montelukast Sodium) 10 Mg Tablet, 10 MG PO HS, TAB 07/01/21 Lisinopril (Lisinopril) 10 Mg Tablet, 10 MG PO HS, TAB 07/01/21 Cetirizine HCl (Cetirizine HCl) 10 Mg Tablet, 10 MG PO DAILY, TAB 07/01/21 Celecoxib (Celebrex) 200 Mg Capsule, 200 MG PO DAILY, CAP 07/01/21 Objective Exam R Knee: Dressing C/D/I, +DF of ankle, no s/s of DVT Vital Signs Vital Signs Date Time Temp Pulse Resp B/P (MAP) Pulse Ox O2 Delivery O2 Flow Rate FiO2 07/10/21 07:34 36.8 108 18 131/68 (89) 93 Nasal Cannula 2.00 07/10/21 03:51 37.1 101 18 117/68 (84) 94 Nasal Cannula 2.00 07/10/21 00:00 36.5 100 18 115/57 (76) 95 Nasal Cannula 2.00 07/09/21 20:27 92 Room Air 07/09/21 20:26 92 Room Air 07/09/21 20:00 37.1 100 20 115/57 (76) 92 Room Air 07/09/21 17:36 37.4 103 128/74 (92) 91 Room Air 07/09/21 16:05 37.5 102 20 172/75 (107) 93 Room Air 07/09/21 11:15 37.6 101 20 154/77 (102) 90 Room Air I & O 07/10/21 07:00 Intake Total 1740 ml Output Total 750 ml Balance 990 ml Lab Results Laboratory Tests 07/10/21 06:11: Hemoglobin 12.4L, Hematocrit 38L Assessment and Plan Assessment R Knee OA s/p R TKA Problem List R Knee OA s/p R TKA Plan Continue PT DVT Prophylaxis Dressing Change Arrangements to be made for DME and Home Health therapy; plan to D/C tomorrow Final Diagonsis R Knee OA s/p R TKA Level of the visit: Level 3 (post op global) LOPEZ BUSH MD Jul 10, 2021 10:46
[2021-07-10] MEDS: RT--FLUTICASONE/SALMETEROL 232-14 (AIRDUO RespiCLICK) IH SCH ×2 (10:59→21:00)
--- NOTE | 2021-07-10 11:50 | Occupational Ther Daily Note ---
OT Current Status-Daily Note Subjective Pt alert, sitting in recliner. Pt agrees to therapy. Pt demonstrates pain with movement of R knee though does not have any complaints. Mental Status/Objective Patient Orientation: Person, Place, Time, Situation Attachments: IV, Polar Pack ADL-Treatment Pt ambulated around room using FWW with supervision. Pt requests to use toilet. Independent standing to urinate in toilet, no LOB. Pt able to stand at sink to wash face. Pt educated on using gait belt to lift R LE up into bed, pt then completed independently. After session, pt lying in bed with call light/phone in reach. All needs met in room. Therapy Code Descriptions/Definitions Functional [place] Measure: 0=Not Assessed/NA 4=Minimal Assistance 1=Total Assistance 5=Supervision or Setup 2=Maximal Assistance 6=Modified [place] 3=Moderate Assistance 7=Complete IndependenceSCALE: Activities may be completed with or without assistive devices. 8-Dibeuysdfl-mqmrymc completes the activity by him/herself with no assistance from a helper. 5-Set-up or Clean-up Assistance-helper sets up or cleans up; patient completes activity. [place] assists only prior to or following the activity. 4-Supervision or Touching Assistance-helper provides verbal cues and/or touching/steadying and/or contact guard assistance as patient completes activity. Assistance may be provided throughout the activity or intermittently. 3-Partial/Moderate Assistance-helper does LESS THAN HALF the effort. [place] lifts, holds or supports trunk or limbs, but provides less than half the effort. 2-Substantial/Maximal Assistance-helper does MORE THAN HALF the effort. [place] lifts or holds trunk or limbs and provides more than half the effort. 1-Zzdstbxsd-llluqg does ALL the effort. Patient does none of the effort to complete the activity. Or, the assistance of 2 or more helpers is required for the patient to complete the activity. If activity was not attempted, code reason: 7-Patient Refused. 9-Not Applicable-not attempted and the patient did not perform the activity before the current illness, exacerbation or injury. 10-Not Attempted due to Environmental Limitations-(lack of equipment, weather restraints, etc.). 88-Not Attempted due to Medical Conditions or Safety Concerns. Toileting Hygiene (QC): 2 Toilet Transfer (QC): 2 Pt declines any AE for dressing stating that his is going to complete task. OT Parcel Post Order Clerk Goals Parcel Post Order Clerk Goals Time Frame: Jul 13, 2021 Eating (QC): 6 Oral Hygiene (QC): 6 Toileting Hygiene (QC): 5 Upper Body Dressing (QC): 5 Lower Body Dressing (QC): 4 1=Demonstrate adherence to instructed precautions during ADL tasks. 2=Patient will verbalize/demonstrate understanding of assistive devices/modifications for ADL. 3=Patient will improve strength/tolerance for activity to enable patient to perform ADL's. OT Education/Plan Problem List/Assessment Assessment: Impaired Self-Care Skills Discharge Recommendations Plan/Recommendations: Continue POC Treatment Plan/Plan of Care Patient would benefit from OT for education, treatment and training to promote independence in ADL's, mobility, safety and/or upper extremity function for ADL's. Plan of Care: ADL Retraining, Functional Mobility, UE Funct Exercise/Act Treatment Duration: Jul 13, 2021 Frequency: 5 times per week Estimated Hrs Per Day: .25 hour per day Rehab Potential: Good Time/GCodes Start Time: 10:50 Stop Time: 11:13 Total Time Billed (hr/min): 23 Billed Treatment Time 1 visit-ADL 2 (23 min) MICHELLE RICHARD Jul 10, 2021 11:50
--- NOTE | 2021-07-10 14:29 | Physical Therapy Daily Note ---
PT Daily Note-Current Subjective Patient in bed pre tx, agrees to PT, voices no complaints of pain. Appearance Patient in bed post tx with nurse call, phone, tray, all needs met. Mental Status Patient Orientation: Person, Place, Situation Attachments: Oxygen Transfers SCALE: Activities may be completed with or without assistive devices. 9-Swqcwmqxvv-rfrovec completes the activity by him/herself with no assistance from a helper. 5-Set-up or Clean-up Assistance-helper sets up or cleans up; patient completes activity. [place] assists only prior to or following the activity. 4-Supervision or Touching Assistance-helper provides verbal cues and/or touching/steadying and/or contact guard assistance as patient completes activity. Assistance may be provided throughout the activity or intermittently. 3-Partial/Moderate Assistance-helper does LESS THAN HALF the effort. [place] lifts, holds or supports trunk or limbs, but provides less than half the effort. 2-Substantial/Maximal Assistance-helper does MORE THAN HALF the effort. [place] lifts or holds trunk or limbs and provides more than half the effort. 4-Niwfscptp-ojqlnb does ALL the effort. Patient does none of the effort to complete the activity. Or, the assistance of 2 or more helpers is required for the patient to complete the activity. If activity was not attempted, code reason: 7-Patient Refused. 9-Not Applicable-not attempted and the patient did not perform the activity before the current illness, exacerbation or injury. 10-Not Attempted due to Environmental Limitations-(lack of equipment, weather restraints, etc.). 88-Not Attempted due to Medical Conditions or Safety Concerns. Roll Left & Right (QC): 6 Sit to Lying (QC): 6 (with use of belt loop to get right leg into bed.) Lying to Sitting/Side of Bed(Q: 6 Sit to Stand (QC): 6 Chair/Mbj-jy-Fwytr Xfer(QC): 6 Weight Bearing Right Lower Extremity: Right Weight Bearing/Tolerated Left Lower Extremity: Left Full Weight Bearing Gait Training Distance: 200' Walk 10 feet (QC): 6 Walk 50 ft with 2 Turns(QC): 6 Walk 150 ft (QC): 6 Gait Assistive Device: FWW slow but steady ambulation Exercises Supine Ex: Ankle pumps, Quad Set, Heel Slides, Short Arc Quads, Straight leg raise Supine Reps: 15 Treatments bed mobility and transfers, ambulation, LE strengthening Assessment Current Status: Fair Progress improving endurance PT Um Rn Goals Um Rn Goals PT Half-Way Goals Time Frame: Jul 20, 2021 Roll Left & Right (QC): 6 Sit to Lying (QC): 6 Lying-Sitting on Side/Bed(QC): 6 Sit to Stand (QC): 6 Chair/Zep-wc-Swcck Xfer(QC): 6 Toilet Transfer (QC): 6 Walk 10 feet (QC): 6 Walk 50ft with 2 Turns (QC): 6 Walk 150 ft (QC): 6 PT Plan Problem List Problem List: Activity Tolerance, Functional Strength, Safety, Balance, Gait, Transfer, Bed Mobility, ROM Treatment/Plan Treatment Plan: Continue Plan of Care Treatment Plan: Bed Mobility, Education, Functional Activity [place], Functional Strength, Gait, Safety, Therapeutic Exercise, Transfers Treatment Duration: Jul 20, 2021 Frequency: 11 times per week Estimated Hrs Per Day: .5 hour per day Patient and/or Family Agrees t: Yes Safety Risks/Education Patient Education: Gait Training, Transfer Techniques, Correct Positioning, Safety Issues Teaching Recipient: Patient Teaching Methods: Demonstration, Discussion Response to Teaching: Reinforcement Needed Time/GCodes Time In: 1402 Time Out: 1416 Total Billed Treatment Time: 14 Total Billed Treatment 1 visit FA DOMINIQUE KEATING PT Jul 10, 2021 14:29
[2021-07-10] MEDS: FLUTICASONE 200 MCG IH SCH (21:00)
[2021-07-10] MEDS: MONTELUKAST 10 MG (SINGULAIR) TAB PO SCH (21:01)
[2021-07-10] MEDS: ROSUVASTATIN 10 MG (CRESTOR) TABLET PO SCH (21:01)
[2021-07-10] MEDS: lisINopril 10 MG (PRINIVIL) TABLET PO SCH (21:02)
[2021-07-11] MEDS: MULTIVIT W/MINERALS TAB (THERAGRAN M) PO SCH (05:07)
[2021-07-11] MEDS: PSEUDOEPHEDRINE HCL 30 MG (SUDAFED) TAB PO SCH ×2 (05:07→11:45)
[2021-07-11] MEDS: RT--FLUTICASONE/SALMETEROL 232-14 (AIRDUO RespiCLICK) IH SCH (07:56)
[2021-07-11] MEDS ORDERED: OXC5T PO (08:04)
[2021-07-11] MEDS ORDERED: ASPI-1238 PO (08:04)
--- NOTE | 2021-07-11 08:07 | D/C HH Face to Face Order ---
D/C Face to Face Orders Instructions for Patient Via [facility], Patient Instructions/FollowUp: 07/23/[address] Sloan Serna; WBAT on Right leg; Dry telfa to right knee incision site daily; home health physical therapy for ROM/strengthening/gait training Physician to follow Patient: Sloan Seran Discharge Diet for Home: Regular Diet Patient Data-Allergies,Ht & Wt Patient Allergies: Coded Allergies: No Known Drug Allergies (Unverified , 07/01/21) Home Health Need/Face to Face Date of Face to Face: Jul 11, 2021 Clinical Findings: Muscle weakness, Pain with ambulation, Unsteady gait I have seen Pt rqnk-dh-lwbj: Yes Discharged To: Home Diagnosis/Conditions: R Knee OA s/p R TKA Patient is Homebound due to: Muscle weakness, Pain w/ambulation Homebound Status Due to the above stated illness, injury or surgical procedure (medical condition or diagnosis) and associated clinical findings, the patient is homebo und because of his/her inability to leave home except with aid of a supportive device and/or person AND leaving the home requires a considerable and taxing effort or is medically contraindicated. Pt req the following assistanc: Walker Home Health Nursing Orders Home Health Services Order: Physical Therapy-Evaluate & Treat Home Health Infusion Therapy Line Start Date: Jul 08, 2021 Certify Stmt I certify that this patient is under my care and that I, a nurse practitioner or a physician; a human resources assistant working with me, had a face to face encounter that - meets the physician face to face encounter requirements with this patient as dated. SLOAN SERNA MD Jul 11, 2021 08:07
[2021-07-11 08:12] VITALS: BP 118/69
--- NOTE | 2021-07-11 08:12 | Discharge Summary ---
Discharge Summary Hospital Course Hospital Course Date of Admission: Jul 08, 2021 at 06:22 Admission Diagnosis : Family Physician/Provider: Date of Discharge: 07/11/21 Discharge Diagnosis: Right Knee Primary Osteoarthritis Hospital Course: On 07/08/21, patient was admitted and taken to the operating room for right total knee arthroplasty. He tolerated the procedure well and due to his Covid positive status was taken to an isolation room after the procedure. On the night of surgery, he did begin use of the CPM and was started on mechanical DVT prophylaxis. On POD #1, he was started on chemical prophylaxis. He began physical therapy. His pain was controlled on an oral pain medication regimen. On POD #2, he continued to make progress with therapy and arrangements were made for home health physical therapy. On POD #3, he was transitioning positions independently and ambulating in his room without difficulty. He had remained asymptomatic from the COVID standpoint throughout his hospital stay. He was ready for discharge home with home health. Labs and Pending Lab Test: Home Meds Active Oxyir Tablet (Oxycodone HCl) 5 Mg Tab 5 Mg PO Q4H PRN 5 Days Aspirin EC (Aspirin) 81 Mg Tablet.dr 81 Mg PO BID WITH MEALS 12 Days Reported Xolair (Omalizumab) 150 Mg/1 Ml Syringe 150 Mg SQ MONTHLY Vitamin D3 (Cholecalciferol (Vitamin D3)) 50 Mcg Tablet 50 Mcg PO DAILY Ventolin Hfa (Albuterol Sulfate) 1 Puff Puff 2 Puff INH Q4H PRN Symbicort 160-4.5 Mcg Inhaler (Budesonide/Formoterol Fumarate) 10.2 Gm Hfa.aer.ad 2 Puff IH BID LAST FILLED 08-17-2020 #2/60 DAY SUPPLY Rosuvastatin Calcium 10 Mg Tablet 10 Mg PO HS Pulmicort Flexhaler (Budesonide) 180 Mcg Aer.pow.ba 2 Puff IH HS LAST FILLED 05-20-2021 #1 Sudafed 12 Hour (Pseudoephedrine HCl) 120 Mg Tablet.er 120 Mg PO BID Montelukast Sodium 10 Mg Tablet 10 Mg PO HS Lisinopril 10 Mg Tablet 10 Mg PO HS Cetirizine HCl 10 Mg Tablet 10 Mg PO DAILY Celebrex (Celecoxib) 200 Mg Capsule 200 Mg PO DAILY Assessment/Pt Instructions WBAT on right lower extremity; use walker for assistance; dry telfa to right knee daily; keep incision site dry. Discharge Physical Examination Vital Signs Vital Signs Date Time Temp Pulse Resp B/P (MAP) Pulse Ox O2 Delivery O2 Flow Rate FiO2 07/11/21 07:56 93 Room Air 3.00 07/10/21 23:21 37.1 89 19 128/68 (88) Extremity: Other (Right Knee: Incision C/D/I; calf nontender, able to DF ankle) Allergies: Coded Allergies: No Known Drug Allergies (Unverified , 07/01/21) Discharge Summary Date of Admission Jul 08, 2021 at 06:22 Date of Discharge LOPEZ BUSH MD Jul 11, 2021 08:12
[2021-07-11] MEDS: DOCUSATE SODIUM 100 MG (COLACE) CAP PO SCH (08:19)
[2021-07-11] MEDS: VITAMIN D3 25 MCG (1,000 UNITS) TABLET PO SCH (08:19)
[2021-07-11] MEDS: ASPIRIN E.C. 81 MG (ECOTRIN) TAB PO SCH (08:19)
[2021-07-11] MEDS: LORATADINE (CLARITIN) 10 MG TAB PO SCH (08:19)
[2021-07-11] MEDS: CELECOXIB 100 MG (CeleBREX) CAP PO SCH (08:19)
--- NOTE | 2021-07-11 08:27 | Physical Therapy Daily Note ---
PT Daily Note-Current Subjective Pt reports he is planning to go home today. He is confident in his abilities. Plans to have home health. Pain Numeric Pain Scale: 7 Location: Right Location Body Site: Knee Mental Status Patient Orientation: Normal For Age Transfers SCALE: Activities may be completed with or without assistive devices. 7-Flogqbvsqf-ddndmjv completes the activity by him/herself with no assistance from a helper. 5-Set-up or Clean-up Assistance-helper sets up or cleans up; patient completes activity. Bowman assists only prior to or following the activity. 4-Supervision or Touching Assistance-helper provides verbal cues and/or touching/steadying and/or contact guard assistance as patient completes activity. Assistance may be provided throughout the activity or intermittently. 3-Partial/Moderate Assistance-helper does LESS THAN HALF the effort. Bowman lifts, holds or supports trunk or limbs, but provides less than half the effort. 2-Substantial/Maximal Assistance-helper does MORE THAN HALF the effort. Bowman lifts or holds trunk or limbs and provides more than half the effort. 5-Epqhojapx-kxludj does ALL the effort. Patient does none of the effort to complete the activity. Or, the assistance of 2 or more helpers is required for the patient to complete the activity. If activity was not attempted, code reason: 7-Patient Refused. 9-Not Applicable-not attempted and the patient did not perform the activity before the current illness, exacerbation or injury. 10-Not Attempted due to Environmental Limitations-(lack of equipment, weather restraints, etc.). 88-Not Attempted due to Medical Conditions or Safety Concerns. Bed mobility and transfers are independent Weight Bearing Right Lower Extremity: Right Weight Bearing/Tolerated Left Lower Extremity: Left Full Weight Bearing Gait Training Does the Patient Walk?: Yes Gait Persons Needed: 1 Gait Assistive Device: FWW Ambulates with a FWW (I). Can walk short distances in room without device. He is steady on his feet. Exercises Supine Ex: Quad Set, Glut sets, Heel Slides, Short Arc Quads Supine Reps: 10 Seated passive flexion and extension stretching of the right knee. Instructed on home exercises of QS, SLR, seated heel slide with overpressure stretch, and seated passive knee extension stretch. Assessment Current Status: Excellent Progress Pt making steady gains with ROM. AROM 6-95 degrees. 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 PT Skilled Nursing Goals Time Frame: Jul 20, 2021 Roll Left & Right (QC): 6 Sit to Lying (QC): 6 Lying-Sitting on Side/Bed(QC): 6 Sit to Stand (QC): 6 Chair/Mno-st-Ogutj Xfer(QC): 6 Toilet Transfer (QC): 6 Walk 10 feet (QC): 6 Walk 50ft with 2 Turns (QC): 6 Walk 150 ft (QC): 6 PT Plan Treatment/Plan Treatment Plan: Continue Plan of Care Treatment Plan: Bed Mobility, Education, Functional Activity Dennis, Functional Strength, Gait, Safety, Therapeutic Exercise, Transfers Treatment Duration: Jul 20, 2021 Frequency: 11 times per week Estimated Hrs Per Day: .5 hour per day Patient and/or Family Agrees t: Yes Time/GCodes Time In: 0800 Time Out: 824 Total Billed Treatment Time: 25 Total Billed Treatment visit, ex 10 min, gt 15 min STEPHENIE MACK PT Jul 11, 2021 08:27
[2021-07-11 11:24] VITALS: BP 118/72
== END 2021-07-11 14:15 | disposition home health service (06) | DRG 469 ==
LOC: 4TH 06:22 → SURG 06:23 → 4TH 11:58
PROVIDERS: ADMIT Orthopaedic Surgery; ATTEND Orthopaedic Surgery
PROC: 8E0ZXY6 Isolation (ICD-10-PCS; 2021-07-08)
PROC: 0SRC0J9 Replacement of Right Knee Joint with Synthetic Substitute, Cemented, Open Approach (ICD-10-PCS; principal; 2021-07-08 07:30)
DX: M17.11 Unilateral primary osteoarthritis, right knee (principal); U07.1 COVID-19; I10 Essential (primary) hypertension; E78.00 Pure hypercholesterolemia, unspecified; J45.909 Unspecified asthma, uncomplicated; Z73.0 Burn-out; Z79.899 Other long term (current) drug therapy
CPT/HCPCS: 36415; 73560; 85014; 85018; 86850; 86900; 86901; 94640; 94664; 94760

== ENCOUNTER → 2021-08-27 | Outpatient (CLI) | payer MEDICARE, OTHER ==
[~2021-08-27] MED LIST changes: +ASPI-1238 PO; +OXC5T PO
--- NOTE | 2021-08-27 11:12 | Diagnostic Imaging Report ---
INDICATION: Postop right knee replacement. AP and lateral views of the right knee are obtained and compared with 07/08/2021. Right knee prosthesis appears in good alignment with no sign of fracture or device loosening. There is no acute abnormality. IMPRESSION: Stable well aligned right knee prosthesis with no acute abnormality. Dictated by: Dictated on workstation # [id number]
== END ==
LOC: ORTHO 09:02
PROVIDERS: ATTEND Orthopaedic Surgery
DX: Z09 Encounter for follow-up examination after completed treatment for conditions other than malignant neoplasm (principal); Z96.651 Presence of right artificial knee joint
CPT/HCPCS: 20610; 73560

== ENCOUNTER → 2021-10-08 | Outpatient (CLI) | payer MEDICARE, OTHER | LOC: ORTHO 08:45 | PROVIDERS: ATTEND Orthopaedic Surgery | DX: Z47.89 Encounter for other orthopedic aftercare (principal) ==

== ENCOUNTER → 2022-07-10 | Outpatient (CLI) | payer MEDICARE, OTHER ==
--- NOTE | 2022-07-10 16:42 | Diagnostic Imaging Report ---
EXAMINATION: Right knee radiographs, 2 views. COMPARISON: Right knee radiographs August 27, 2021. HISTORY: 71-year-old male, followup right knee prosthesis. FINDINGS: There is a right total constrained knee prosthesis. The hardware is intact. There is no periprosthetic lucency. There is no identified acute fracture. There are vascular calcifications. IMPRESSION: Intact total constrained right knee prosthesis without complication. Dictated by: Dictated on workstation # [id number]
== END ==
LOC: ORTHO 08:05
PROVIDERS: ATTEND Orthopaedic Surgery
DX: M70.61 Trochanteric bursitis, right hip (principal); Z96.651 Presence of right artificial knee joint
CPT/HCPCS: 20610; 73560; 99213

== ENCOUNTER → 2023-01-01 | Outpatient (CLI) | payer MEDICARE, OTHER | LOC: ORTHO 09:38 | PROVIDERS: ATTEND Orthopaedic Surgery | DX: M17.12 Unilateral primary osteoarthritis, left knee (principal) | CPT/HCPCS: 20610 ==